=== PATIENT | male | born 1970 | race Caucasian/White ===

== ENCOUNTER 2022-01-25 06:07 | Day surgery (SDC) | payer MEDICAID, SELFPAY ==
[2022-01-20 15:05] VITALS: BMI 43.9
[2022-01-21 12:47] VITALS: BMI 43.9
--- NOTE | 2022-01-22 12:42 | MHC.SHP ---
Pre-Procedural Eval Section A Date of Service: 01/22/22 The patient is an INPATIENT: No Changes since office visit: No Cold of Flu in the past 2 weeks, No New Medical Problems, No Changes in Medication and No Patient answered all questions The History & Physical has been completed within 30 days and I have reviewed it.: Yes Section B Chief Complaint: cataract Allergies: Allergies Allergy/AdvReac Type Severity Reaction Status Date / Time aspirin [ASA] Allergy Intermediate NASAL Verified 01/20/22 14:58 POLYPS Plan Diagnosis/Plan: Unchanged I have reviewed the history and physical and performed a pertinent physical examination on my patient. No changes have occurred unless specified.
[2022-01-25] MEDS: Tetracaine HCl/PF 0.5% Oph Sol 4 ML DROPS 1 DROP EYE-RIGHT (06:20)
[2022-01-25] MEDS: Cyclopentolate 1 % Ophth Sol 2 ML DRPBTL 1 DROP EYE-RIGHT ×3 (06:21→06:33)
[2022-01-25] MEDS: Tropicamide 1 % Ophth Sol 3 ML BTL 1 DROP EYE-RIGHT ×3 (06:21→06:26)
[2022-01-25] MEDS: Phenylephrine HCL 2.5% Oph SoL 2 ML BOTTLE 1 DROP EYE-RIGHT ×3 (06:21→06:34)
[2022-01-25 06:36] VITALS: BP 153/90; PULSE 77; RESP 18; TEMP 36.4; O2SAT 95
--- NOTE | 2022-01-25 07:06 | HO.ANESPROP2 ---
HPI - Anesthesia Eval Consult details Narrative: right eye cataract [facility] Past Medical History Medical History Atrial fibrillation Bipolar disorder Elevated cholesterol HTN (hypertension) Sleep apnea Family History Family history of problems with anesthesia: No Surgical History Surgical History H/O colonoscopy History of surgery Hx of appendectomy Hx of left cataract extraction Hx of tonsillectomy History of Problems with Anesthesia: No Social History Social History Are you a primary acute care surgeon to a significant other at home: No Do you presently have visiting nurse or other home services: No Patient Tobacco Use Status: Former Tobacco user Quit Date: >10 years ago Tobacco use type: Cigarette Use of substances other than those prescribed or required for medical reasons: Yes Substance Use Frequency: Occasionally Have you been hit, kicked, punched, or otherwise hurt by someone within the past year? If so, by whom?: No Are you DNR?: No Advance Directives: No Advance Directives Information Provided: Yes (brochure mailed) Advance Directives on File: No Recently lost weight without trying: No Eating poorly because of decreased appetite: No Nutrition Risks: No Nutritional Risk Poor oral hygiene: No Meds Allergies Allergy/AdvReac Type Severity Reaction Status Date / Time aspirin [ASA] Allergy Intermediate NASAL Verified 01/20/22 14:58 POLYPS Active Medications: Current Medications Povidone Iodine (Povidone Iodine 5 % Ophth Soln 30 Ml Bottle) 1 appl EYE-RIGHT PREOP PRN PRN Reason: Pre-Op Surgical Implant Prophy Home Medications Medication Instructions Recorded Confirmed Last Taken Type amlodipine 10 mg tablet 1 tab PO DAILY 01/20/22 01/20/22 Unknown History atorvastatin 80 mg tablet 1 tab PO DAILY 01/20/22 01/20/22 Unknown History lithium carbonate 300 mg tablet 3 tab PO BEDTIME 01/20/22 01/20/22 Unknown History metoprolol tartrate 50 mg tablet 1 tab PO BID 01/20/22 01/20/22 Unknown History rivaroxaban 20 mg tablet (Xarelto) 1 tab PO DAILY 01/20/22 01/20/22 Unknown History vortioxetine 20 mg tablet 1 tab PO DAILY 01/20/22 01/20/22 Unknown History (Trintellix) Exam Exam Date and Time: January 25, 202207 Height,Weight and Vital Signs: Height 6 ft 2 in Weight 155.31 kg Last Vital Signs Temp 97.6 F 01/25/22 06:36 Pulse 77 01/25/22 06:36 Resp 18 01/25/22 06:36 BP 153/90 H 01/25/22 06:36 Pulse Ox 95 01/25/22 06:36 O2 Del Method 01/25/22 06:36 Airway Mallampati Class: III TM Dist: >3cm Neck ROM: Full Loose/Missing/Broken Teeth: No Heart: [id number] Lungs: cta b/l Assessment and Plan Assessment Anesthesia Assessment: Anesthesia Plan Discussed and Chart Reviewed Final Anesthetic Review Family History of Problems with Anesthesia: No History of Problems with Anesthesia: No NPO: Yes ASA Class: III Final Preanesthetic Review: No Changes in Pt Med Stat, Meds/Allgs Chart Reviewed, Consent Obtained/Reviewed and Anes Risks/Benef Reviewed Patient Risk: Intermediate Procedure Risk: Low Assessment/Block/Sedation in SS: Assess/Block/Sedation-SS Anesthetic Plan Anesthetic Plan: MAC: and Agree w/ Assess. and Plan Disposition: Standard PACU
[2022-01-25] MEDS: Lactated Ringers 500 ML 50 ML IVCONT (07:16)
[2022-01-25 08:06] VITALS: BP 128/82; PULSE 83; RESP 18; TEMP 36.2; O2SAT 95
--- NOTE | 2022-01-25 08:06 | HO.PNOPHT ---
Ophthalmology Procedure Procedure Date of Service: 01/25/22 Ophthalmology Viscoelastic: Healon Duet Dual Pack Pro Ophthalmology Lenses: TECNIS [id number] (18.5) Procedure Notes: PREOPERATIVE DIAGNOSIS: Decreased visual acuity right eye secondary to cataract POSTOPERATIVE DIAGNOSIS: Same PROCEDURE: Right cataract extraction with intraocular lens insertion SURGEON: Claudio Worrell M.D. ANESTHESIA: Topical/MAC ESTIMATED BLOOD LOSS: None COMPLICATIONS: None After obtaining informed consent, the patient was brought to the operating room suite and placed in the supine position. After adequate sedation per anesthesia, topical drops of Tetracaine were given to the right eye. The eye was then prepped and draped in the usual sterile fashion. The operating room microscope was then positioned over the operative eye and a lid speculum placed. A paracentesis was created. Viscoelastic was then instilled into the anterior chamber. A three plane incision was then created temporally, utilizing a 2.85 mm keratome. Capsulotomy forceps were then utilized to create a circular tear capsulotomy. Hydrodissection and hydrodelineation were carried out until adequate mobilization of the nucleus occurred. Phacoemulsification was then utilized to remove the dense central nucleus followed by removal of the cortical material utilizing the automated aspiration irrigation unit. Viscoelastic was instilled into the posterior capsular bag followed by placement of a posterior chamber intraocular lens without difficulty. The residual Viscoelastic was then removed utilizing the automated IA machine. The wound was checked and found to be watertight. The patient tolerated the procedure well and the lid speculum was removed. Intracameral injection of Vigamox 0.1 mL followed by a subtenon injection of Kenalog-40 0.2 mL were administered. The patient will be seen in the a.m.
== END 2022-01-25 08:20 | disposition home or self-care (01) ==
PROVIDERS: PCP Student in an Organized Health Care Education/Training Program; Visit Provider Ophthalmology
PROC: (CPT 66985; principal; 2022-01-25 07:30)
DX: H25.041 Posterior subcapsular polar age-related cataract, right eye (principal); I10 Essential (primary) hypertension
CPT/HCPCS: 66984; J2250; J3300; V2632